=== PATIENT | male | born 1950 | race American Indian/Alaskan Native ===

== ENCOUNTER 2017-11-21 16:01 | Emergency (ER) | payer MEDICARE, OTHER ==
--- NOTE | 2017-11-21 19:10 | XRay Report ---
FINAL REPORT EXAM: XR CHEST ROUTINE 2V HISTORY: chest congestion TECHNIQUE: Two views of the chest Comparison: None FINDINGS: Normal heart size. Mild ill-defined increased markings in the left lower lobe may represent atelectasis or early infiltrate. No effusion. No definite peribronchial thickening. IMPRESSION: Left lower lobe atelectasis or infiltrate. Otherwise, no acute cardiopulmonary disease.
--- NOTE | 2017-11-21 19:37 | Emergency Department Report ---
HPI - General Chief Complaint: Upper Respiratory Infection Time Seen by Provider: 11/21/17 19:35 - HPI HPI: Patient airport lungs is congested and states "symptoms all week. Denies any chest pain or shortness of breath. He has a medical problem with diabetes and high blood pressure. Denies any fever or chills. Denies any nausea or vomiting. He said he is congested and is chest and is having nasal congestion with runny nose. Denies any stridor or wheezing. [id number] cough and cold medication without any relief. Denies any abdominal or back pain. Pain scale is 0 out of 10 ED Past Medical Hx - Past Medical History Previous Medical History?: Yes Hx Hypertension: Yes Hx Diabetes: Yes - Surgical History Past Surgical History?: No - Family History Family history: hypertension - Social History Smoking Status: Never Smoker Substance Use Type: None - Medications Home Medications: Home Medications Medication Instructions Recorded Confirmed Last Taken Type Metoprolol [Lopressor TAB] 50 mg PO DAILY 11/04/15 11/04/15 Unknown History amLODIPine [Norvasc] 10 mg PO DAILY 11/04/15 11/04/15 Unknown History metFORMIN [Glucophage] 500 mg PO BID 11/04/15 11/04/15 Unknown History Amoxicillin/K Clav Tab [Augmentin 1 tab PO Q12HR 10 Days #20 tab 11/21/17 Unknown Rx 875 mg] Bisacodyl [Dulcolax] 10 mg PO DAILY 10 Days #10 tab 11/21/17 Unknown Rx Fluticasone [Flonase] 1 spray NS QDAY 10 Days #1 bottle 11/21/17 Unknown Rx ED Review of Systems ROS: Stated complaint: SOB/TOMMIE/CHF Other details as noted in HPI Comment: All other systems reviewed and negative Constitutional: no symptoms reported Eyes: denies: eye pain, eye discharge ENT: congestion. denies: ear pain, throat pain, dental pain, hearing loss, epistaxis Respiratory: cough. denies: shortness of breath, SOB with exertion, SOB at rest , stridor, wheezing Cardiovascular: denies: chest pain, palpitations, dyspnea on exertion, orthopnea , edema, syncope, paroxysmal nocturnal dyspnea Gastrointestinal: denies: abdominal pain, nausea, vomiting, diarrhea, constipation Genitourinary: denies: urgency, dysuria, hematuria, discharge Musculoskeletal: denies: back pain, joint swelling, arthralgia, myalgia Skin: denies: rash Neurological: denies: headache, weakness, numbness, paresthesias, abnormal gait , vertigo Physical Exam - Physical Exam Vital Signs: Vital Signs 11/21/17 16:21 Temperature 98.1 F Pulse Rate 78 Respiratory 18 Rate Blood Pressure 143/77 O2 Sat by Pulse 97 Oximetry Temp Pulse Resp BP Pulse Ox 97.9 F 64 18 118/68 97 11/21/17 22:42 11/21/17 22:42 11/21/17 22:42 11/21/17 22:42 11/21/17 22:42 General: This is a 67-year-old male well-nourished well-developed in no acute distress. Physical Exam: Head: Normocephalic, atraumatic, no abrasion, no bruising and no contusion. Eyes: Biateral pupils equal and reactive to light, bilateral EOM intact.. Bilateral conjunctival and sclera without injection, normal accommodation. No nystagmus Mouth: Moist, no pharyngeal exudate or erythema. No peritonsillar abscesses. Uvula is midline and oral airways patent. Ears: TM congested without erythema. Bilateral EAC without any redness swelling or drainage. No mastoid bone tenderness Nose: Lateral nasal turbinates congested with erythema and clear drainage. Maxillary and frontal sinuses tender to palpate. Neck: Supple, No Cervical adenopathy, full range of motion and no C-spine tenderness. No swelling or tracheal deviation normal reflexes Cardiovascular: S1, S2. Regular rate and rhythm. No murmur. Capillary refill is less then 3 seconds. Lungs: Clear to auscultate bilaterally. No rhonchi, wheezes or rales. No chest wall tenderness. No chest contusion. No bruising to chest. MSK: Strength 5/5 in all extremities. No joint deformity or crepitus. Normal inspection. Full range of motion to all extremities. No laceration, abrasion or ecchymotic area noted. Patient able to fully flex and extend bilateral knees without any difficulties. Bilateral knees nontender to palpate. Abdomen: Non-tender to palpate in all quadrants, no guarding or rebound tenderness, positive bowel sounds in all quadrants. No CVA tenderness. No hernia, bruit or mass. No rigidity or distention. Extremities: No clubbing, cyanosis or edema. +2 pulses. No neurovascular compromise Skin: Clean, dry and intact. No rash or lesions. Neurological: GCS at 15, Pt is alert and oriented 3 speech is clear period. Bilateral hand foundation assistant strong and equal. Normal gait. Negative Romberg and no pronator drift. Normal Reflexes. No motor or sensory deficit Back: No vertebral tenderness, no paraspinal tenderness. The bend over and touch his toes without any difficulties. Ambulates without any difficulties. Psych: Normal mood and behavior ED Course Vital Signs 11/21/17 16:21 Temperature 98.1 F Pulse Rate 78 Respiratory 18 Rate Blood Pressure 143/77 O2 Sat by Pulse 97 Oximetry Vital Signs 11/21/17 11/21/17 16:21 22:42 Temperature 98.1 F 97.9 F Pulse Rate 78 64 Respiratory 18 18 Rate Blood Pressure 143/77 Blood Pressure 118/68 [Left] O2 Sat by Pulse 97 97 Oximetry - Reevaluation(s) Reevaluation #1: 11/21/17 22:50 Patient and received oral hydration and tolerated well. He received DuoNeb treatment for scattered wheezes and upper lung beach. A further evaluation lung sounds are clear. ED Medical Decision Making - Lab Data Result diagrams: 11/21/17 20:02 11/21/17 20:02 Labs 11/21/17 11/21/17 20:02 20:02 WBC 9.0 RBC 5.44 H Hgb 14.0 Hct 42.2 MCV 78 L MCH 26 L MCHC 33 RDW 14.9 Plt Count 226 Lymph % (Auto) 34.3 [place] % (Auto) 4.7 Eos % (Auto) 2.3 Baso % (Auto) 0.5 Lymph # 3.1 [place] # 0.4 Eos # 0.2 Baso # 0.0 Seg Neutrophils % 58.2 Seg Neutrophils # 5.2 Sodium 139 Potassium 3.6 Chloride 98.2 Carbon Dioxide 26 Anion Gap 18 BUN 15 Creatinine 0.7 L Estimated GFR > 60 BUN/Creatinine Ratio 21 Glucose 164 H Calcium 9.2 - Radiology Data Radiology results: report reviewed Patient had chest x-ray which shows that he had ill-defined increased marking in the left lower lobe may represent atelectasis or early infiltrate. CT scan of the chest after abnormal finding on chest x-ray reveals lungs are clear no significant infiltrates or atelectasis. No pleural effusion the vessels of the superior mediastinum and a torturous there is minimal left posterior pleural thickening in. There are shottyy axillary and mediastinal lymph nodes. The aorta has normal course and caliber. There is trace pericardial effusion. Abdomen with fecal retention. Distal esophageal thickening in in association with hiatal hernia. Left and right pulmonary arteries are grossly normal course and caliber. Spondylolis. No pneumonia or bronchitis. - Medical Decision Making ED course: Patient here complaining of cough and congestion with cold-like symptoms for over a week. He had chest x-ray done which suggest the patient probably has mild atelectasis to the left lower lobe versus infiltrate. CT scan of the chest without contrast done which revealed patient has no pneumonia or atelectasis. No bronchitis. No pleural effusion. He has fatty liver. He has fecal retention in his colon otherwise abdomen is normal. Patient lungs with scattered wheezes and upper lung beach. He was given DuoNeb treatment 1 and after reevaluation lungs sounds are clear. Patient with acute upper respiratory infection with cough and congestion, constipation. Blood sugar elevated and he is on medication. I discussed the patient on his lab results and chest x-ray and CT findings and he voiced understanding. Patient discharged home with his family in stable condition to follow up with his primary care physician with prescription for bisacodyl, Augmentin and Flonase. Critical care attestation.: If time is entered above; I have spent that time in minutes in the direct care of this critically ill patient, excluding procedure time. ED Disposition Clinical Impression: Upper respiratory infection with cough and congestion, Fatty liver disease, nonalcoholic, Hiatal hernia without gangrene and obstruction Constipation Qualifiers: Constipation type: other constipation type Qualified Code(s): K59.09 - Other constipation Hyperglycemia due to type 2 diabetes mellitus Qualifiers: Diabetes mellitus manager terminal insulin use: without manager terminal use Qualified Code(s ): E11.65 - Type 2 diabetes mellitus with hyperglycemia Disposition: DC-01 TO HOME OR SELFCARE Is pt being admited?: No Does the pt Need Aspirin: No Condition: Stable Instructions: Hiatal Hernia (ED), Diabetes Mellitus Type 2 in Adults (ED), Upper Respiratory Infection (ED), Non-Alcoholic Fatty Liver Disease (ED), Diabetic Hyperglycemia (ED), Acute Cough (ED) Additional Instructions: Please increase her fluid intake to 2-3 L of water per day blood sugar was elevated on chemistry so U will need to keep a close eye and monitor your blood glucose and schedule an appointment with your primary care physician for evaluation CT scan shows that you have a hiatal hernia and also large amount of feces in your colon. He will need to follow up with a signal integrity engineer to manage a dull hernia and constipation. Please increase your fiber in your diet and avoid spicy food and carbonated beverage Take antibiotic and other medication as prescribed CT scan also showed that you have a fatty liver so please avoid alcohol or any medication that has Tylenol or acetaminophen Prescriptions: Amoxicillin/K Clav Tab [Augmentin 875 mg] 1 tab PO Q12HR 10 Days #20 tab Bisacodyl [Dulcolax] 10 mg PO DAILY 10 Days #10 tab Fluticasone [Flonase] 1 spray NS QDAY 10 Days #1 bottle Referrals: PRIMARY CARE,MD [Primary Care Provider] - 2-3 Days [facility] [Outside] - 2-3 Days Forms: Accompanied Note, Work/School Release Form(ED)
[2017-11-21] MEDS ORDERED: DUONEB *Not for PRN Use IH ONE (19:51)
[2017-11-21 20:34] LABS: Basophils % (Auto) 0.5 % (0.0-1.8); Eosinophils # (Auto) 0.2 K/mm3 (0.0-0.4); Eosinophils % (Auto) 2.3 % (0.0-4.3); Hematocrit 42.2 % (35.5-45.6); Lymphocytes # (Auto) 3.1 K/mm3 (1.2-5.4); Lymphocytes % (Auto) 34.3 % (13.4-35.0); Mean Corpuscular HGB Conc 33 % (32-34); Mean Corpuscular Volume 78 fl (84-94); Monocytes # (Auto) 0.4 K/mm3 (0.0-0.8); Monocytes % (Auto) 4.7 % (0.0-7.3); Platelet Count 226 K/mm3 (140-440); Red Blood Count 5.44 M/mm3 (3.65-5.03); Red Cell Distribution Width 14.9 % (13.2-15.2)
[2017-11-21 20:39] LABS: BUN/Creatinine Ratio 21; Blood Urea Nitrogen 15 mg/dL (9-20); Calcium 9.2 mg/dL (8.4-10.2); Hemolysis Index 8
[2017-11-21 20:43] LABS: Mean Corpuscular Hemoglobin 26 pg (28-32)
--- NOTE | 2017-11-21 21:40 | Cat Scan Report ---
FINAL REPORT EXAM: CT CHEST WO CON HISTORY: xr with poss pna TECHNIQUE: Axial images were performed from the lung apices to the bases without IV contrast. Multiplanar reformats are performed on the acquisition scanner. Comparison: Chest x-ray same day FINDINGS: The lungs are clear. There is no significant infiltrate or atelectasis. There is no pleural effusion. There is minimal left posterior pleural thickening. The vessels in the superior mediastinum are tortuous. There are shotty axillary and mediastinal lymph nodes. The aorta has normal course and caliber. Cannot assess for intraluminal filling defect. There is trace pericardial effusion the superior pericardial recess. Pulmonary outflow tract, left and right pulmonary arteries are grossly normal course and caliber. There is distal esophageal mild thickening in association with hiatal hernia. The liver is diffusely hypodense compatible with fatty infiltration. Unremarkable imaged upper abdomen otherwise. There is calcification of the aortic root and left coronary artery. There is mild diffuse fecal retention. There is mild thoracic spondylosis. IMPRESSION: Clear lungs. No pneumonia. No bronchitis. Distal esophageal mild wall thickening in association with hiatal hernia. Diffusely fatty infiltrated liver.
[2017-11-21 22:43] VITALS: BP 118/68
== END 2017-11-21 23:10 | disposition home or self-care (01) ==
LOC: ED 16:01
DX: J06.9 Acute upper respiratory infection, unspecified (principal); E11.65 Type 2 diabetes mellitus with hyperglycemia; K59.09 Other constipation; K44.9 Diaphragmatic hernia without obstruction or gangrene; K76.0 Fatty (change of) liver, not elsewhere classified; I10 Essential (primary) hypertension
CPT/HCPCS: 36415; 71046; 71250; 80048; 85025; 87040; 93005; 93010; 94640